=== PATIENT | male | born 1980 | race Two or more races ===

== ENCOUNTER 2020-08-20 03:32 | Emergency (ER) | payer SELFPAY ==
[~2020-08-20] VITALS: Ht 170.2 cm; Wt 72.5 kg
[2020-08-20] MEDS ORDERED: MORPHINE SULFATE 4 MG/ML, 1ML IVPush PRN (04:00)
[2020-08-20] MEDS ORDERED: ONDANSETRON 2MG/ML, 2ML IVPush ONE (04:00)
[2020-08-20] MEDS ORDERED: PLEASE ENTER ALLERGIES MC SCH (04:00)
[2020-08-20] MEDS ORDERED: MORPHINE SULFATE 4 MG/ML, 1ML ONE (04:02)
[2020-08-20] MEDS ORDERED: ONDANSETRON 2MG/ML, 2ML ONE (04:02)
--- NOTE | 2020-08-20 04:15 | NUR ---
PT BROUGHT IN BY FAMILY BECAUSE HE FELL DOWN STEPS AT HOME AND INJURED HIS LEFT ARM. ARM IS SWOLLEN AND PAINFUL FOR PATIENT TO MOVE. PT PLACED ON CONTINUOUS PULSE OX, IV PLACED, MEDICATED PER EMAR, AND XRAY WAS PHONED BUT NO ANSWER
--- NOTE | 2020-08-20 04:27 | NUR ---
XRAY PHONED, NO ANSWER. PT RESTING IN BED, STATES FEELING BETTER FROM MEDICATION. AWARE
--- NOTE | 2020-08-20 04:51 | NUR ---
PT TO XRAY
[2020-08-20] MEDS ORDERED: PROPOFOL 10 MG/ML, 20ML ONE ×3 (04:57→13:47)
[2020-08-20] MEDS ORDERED: PROPOFOL 10 MG/ML, 20ML IVPush ONE ×2 (05:00→14:30)
[2020-08-20] MEDS ORDERED: FENTANYL PF 100 MCG/2ML ONE (05:05)
[2020-08-20] MEDS ORDERED: FENTANYL PF 100 MCG/2ML IVPush ONE (05:30)
[2020-08-20] MEDS ORDERED: ONDANSETRON 2MG/ML, 2ML IVPush PRN (06:00)
[2020-08-20] MEDS ORDERED: HYDROmorphone 1 MG/ML, 1ML INJ IVPush PRN (06:00)
--- NOTE | 2020-08-20 06:17 | NUR ---
PT HAD CONSIOUS SEDATION TO FIX DISLOCATED LEFT ELBOW. ATTEMPT UNSUCCESSFUL, ERP SPOKE WITH MD AND PT WILL REQUIRE SURGERY AND WILL BE ADMITTED. PT UNDERSTANDING OF POC AND IS AGREEABLE. SEE SEDATION WORKSHEET FOR VITALS AND INFORMATION DURING INTRA PROCEDURE
--- NOTE | 2020-08-20 06:33 | NUR ---
PT STATES HE HAS "MINIMAL PAIN" IN HIS LEFT ARM AT THIS TIME. STATES NO NEEDS.
--- NOTE | 2020-08-20 07:01 | NUR ---
REPORT REC'VD FROM ELISA SPENCER. PT RESTING ON HOSPITAL BED. PT'S FAMILY BEDSIDE.
--- NOTE | 2020-08-20 10:13 | NUR ---
PT RESTING ON ED GURNEY WITH EYES CLOSED. PT VSS.
[2020-08-20] MEDS ORDERED: HEPARIN 25,000 UNITS/250ML PMX 250 ML ONE (12:03)
--- NOTE | 2020-08-20 12:09 | NUR ---
PT REPORT TO ELISA FERRARO.
--- NOTE | 2020-08-20 12:52 | NUR ---
TASK RN NOTE: OR CALLED IN REFERENCE TO THIS PT TO UPDATE ON CURRENT POSITIVE COVID LAB. PT WILL STILL UNDERGO SURGERY WITH PROTOCOLS SET UP. THROUGHPUT AWARE.
--- NOTE | 2020-08-20 14:01 | NUR ---
PT UNDERGOING CONSCIOUS SEDATION FOR DR SALAS TO REDUCE ELBOW DISLOCATION IN ER. PLEASE SEE PAPER CHART FOR FURTHER.
[2020-08-20] MEDS ORDERED: HYDROcodone/APAP 5/325 TABLET ONE (14:59)
--- NOTE | 2020-08-20 15:13 | NUR ---
PT MEDICATED PER MAR FOR PAIN
[2020-08-20] MEDS ORDERED: HYDROcodone/APAP 5/325 TABLET PO ONE (16:00)
[2020-08-20 16:08] VITALS: BP 140/54
--- NOTE | 2020-08-20 16:50 | NUR ---
PT RECIVED DISCHARGE INSTRUCTIONS AND EDUCATION VIA OFFICE ASSISTANT. PT HAD NO FURTHER QUESTIONS. PT'S SIGNIFICANT OTHER AT HOSPITAL TO DRIVE PT HOME. PT AMBULATED TO DC AREA, STEADY GAIT.
== END 2020-08-20 16:58 | disposition home or self-care (01) ==
LOC: ED 04:02 → UNDOADMIN 06:00 → EDIP 06:00 → ED 16:58
DX: U07.1 COVID-19 (principal); S53.105A Unspecified dislocation of left ulnohumeral joint, initial encounter; W01.0XXA Fall on same level from slipping, tripping and stumbling without subsequent striking against object, initial encounter; Y93.89 Activity, other specified; Y92.009 Unspecified place in unspecified non-institutional (private) residence as the place of occurrence of the external cause; Y99.8 Other external cause status
CPT/HCPCS: 24600; 73070; 76000; 87635; 96374; 96375; 99152; 99285; J2270; J2405; J3010